=== PATIENT | female | born 1935 | race Caucasian/White ===

== ENCOUNTER 2017-04-09 14:21 | Inpatient (IN) | payer OTHER, BC ==
[~2017-04-09] VITALS: Ht 157.5 cm; Wt 66.1 kg
[~2017-04-09 14:21] MED LIST: CONSTULOSE10 GM/15 M PO; GLUCOVANCE 51 TABLET PO; INDOCIN50 MG PO; MIRALAX17 GM PO; TYLENOL WITH C1 EACH PO; ZANTAC150 MG PO
[2017-04-09 15:25] LABS: HEMATOCRIT 42.2 % (36.0-46.0); MCH 30.2 PG (29.0-34.0); MCHC 33.6 G/DL (30.0-36.0); MCV 89.8 FL (83-99); MEAN PLAT.VOLUME 9.9 uM^3 (9.5-12.4); PLATELET COUNT 170 K/uL (156-360); RBC DIS.WIDTH-CV 12.1 % (11.8-14.6); RBC DIS.WIDTH-SD 40.1 % (39-53); WHITE BLOOD COUNT 5.5 K/uL (4.1-10.2)
[2017-04-09 15:33] LABS: CHLORIDE 104 mEq/L (99-109); POTASSIUM 4.2 mEq/L (3.7-5.4); SODIUM 139 mEq/L (136-147)
[2017-04-09 15:35] LABS: GLUCOSE 133 mg/dL (70-99)
[2017-04-09 15:36] LABS: ANION GAP 11 MEQ/L (2-14)
[2017-04-09 15:39] LABS: GFR ESTIMATE (CALCULATED) > 59 mL/min/
[2017-04-09 15:40] LABS: UREA NITROGEN (BUN) 20 mg/dL (9-23)
[2017-04-09 15:47] LABS: PROTHROMBIN TIME 11.5 SEC (10.2-12.9)
[2017-04-09 15:50] LABS: PTT 28.9 SEC (25-37)
[2017-04-09 15:59] LABS: TROP-I INTERPRETATION NEGATIVE; TROPONIN-I < 0.01 ng/mL (0.0-0.30)
[2017-04-09] MEDS ORDERED: FOLIC ACID1 MG PO (18:05)
[2017-04-09] MEDS ORDERED: TRULICITY0.75 MG/0. SC (18:07)
[2017-04-09] MEDS ORDERED: LINZESS290 MCG PO (18:07)
[2017-04-09] MEDS ORDERED: DOCUSATE SODIU100 M1 PO (18:12)
[2017-04-09] MEDS ORDERED: ATORVASTATIN CA20 MG PO (18:12)
[2017-04-09] MEDS ORDERED: METOPROLOL SUCC50 MG PO (18:12)
[2017-04-09] MEDS ORDERED: CLOPIDOGREL75 MG PO (18:13)
[2017-04-09] MEDS ORDERED: LO-DOSE ASPIRIN81 M2 PO (18:15)
[2017-04-09] MEDS ORDERED: ONE DAILY FOR1 EAC3 PO (18:16)
[2017-04-09] MEDS ORDERED: VITAMIN B-1100 MG PO (18:17)
[2017-04-09 23:48] VITALS: BP 132/81
[2017-04-10 05:52] LABS: HEMATOCRIT 38.5 % (36.0-46.0); MCH 30.1 PG (29.0-34.0); MCHC 33.2 G/DL (30.0-36.0); MCV 90.6 FL (83-99); PLATELET COUNT 160 K/uL (156-360); RBC DIS.WIDTH-CV 12.3 % (11.8-14.6); RBC DIS.WIDTH-SD 40.6 % (39-53); RED BLOOD COUNT 4.25 M/uL (3.80-5.20); WHITE BLOOD COUNT 5.9 K/uL (4.1-10.2)
[2017-04-10 06:10] LABS: ALKALINE PHOSPHATASE 77 IU/L (3-129); ANION GAP 6 MEQ/L (2-14); CHLORIDE 108 MEQ/L (99-109); GFR ESTIMATE (CALCULATED) > 59 mL/min/; GLUCOSE 112 mg/dL (70-99); POTASSIUM 4.4 MEQ/L (3.7-5.4); SAMPLE HEMOLYSIS CHECK 0; SAMPLE ICTERIC CHECK 0; SAMPLE LIPEMIA CHECK 0; SODIUM 141 MEQ/L (136-147); TOTAL BILIRUBIN 0.6 MG/DL (0.0-1.0); UREA NITROGEN (BUN) 15 mg/dL (9-23)
[2017-04-10 06:24] VITALS: BP 113/56
[2017-04-10 08:44] LABS: HEMATOCRIT 40.4 % (36.0-46.0); MCV 90.8 FL (83-99)
[2017-04-10 09:00] VITALS: BP 140/75
[2017-04-10 11:20] VITALS: BP 107/64
[2017-04-10 12:47] LABS: POINT-OF-CARE METER ID UU13113831
[2017-04-10 13:50] LABS: POINT-OF-CARE METER ID UU13113831
[2017-04-10 15:47] LABS: HEMATOCRIT 38.4 % (36.0-46.0); MCV 92.8 FL (83-99)
[2017-04-10 16:10] VITALS: BP 100/56
[2017-04-10 17:39] LABS: POINT-OF-CARE METER ID UU13113831
[2017-04-10 19:20] VITALS: BP 104/60
[2017-04-10 22:43] LABS: POINT-OF-CARE METER ID UU13113831
[2017-04-11 00:39] VITALS: BP 132/69
[2017-04-11 04:42] VITALS: BP 103/57
[2017-04-11 05:41] LABS: MCH 31.1 PG (29.0-34.0); MCHC 33.7 G/DL (30.0-36.0); MCV 92.3 FL (83-99); MEAN PLAT.VOLUME 9.8 uM^3 (9.5-12.4); PLATELET COUNT 132 K/uL (156-360); RBC DIS.WIDTH-CV 12.3 % (11.8-14.6); RBC DIS.WIDTH-SD 41.4 % (39-53); RED BLOOD COUNT 3.79 M/uL (3.80-5.20); WHITE BLOOD COUNT 4.5 K/uL (4.1-10.2)
[2017-04-11 06:01] LABS: ANION GAP 9 MEQ/L (2-14); CHLORIDE 112 MEQ/L (99-109); GFR ESTIMATE (CALCULATED) > 59 mL/min/; GLUCOSE 89 mg/dL (70-99); POTASSIUM 4.1 MEQ/L (3.7-5.4); SAMPLE HEMOLYSIS CHECK 0; SAMPLE ICTERIC CHECK 0; SAMPLE LIPEMIA CHECK 0; SODIUM 144 MEQ/L (136-147); UREA NITROGEN (BUN) 6 mg/dL (9-23)
[2017-04-11 09:00] VITALS: BP 123/66
[2017-04-11 11:41] VITALS: BP 127/68
[2017-04-11 12:45] LABS: POINT-OF-CARE METER ID UU13113831
[2017-04-11 16:00] VITALS: BP 114/63
[2017-04-11 21:21] VITALS: BP 145/100
[2017-04-12] VITALS: BP 136/68
[2017-04-12 00:45] LABS: HEMATOCRIT 36.6 % (36.0-46.0); MCH 30.2 PG (29.0-34.0); MCHC 33.6 G/DL (30.0-36.0); MCV 89.9 FL (83-99); MEAN PLAT.VOLUME 9.6 uM^3 (9.5-12.4); PLATELET COUNT 152 K/uL (156-360); RBC DIS.WIDTH-CV 11.9 % (11.8-14.6); RBC DIS.WIDTH-SD 39.2 % (39-53); RED BLOOD COUNT 4.07 M/uL (3.80-5.20); WHITE BLOOD COUNT 5.3 K/uL (4.1-10.2)
[2017-04-12 04:30] VITALS: BP 120/70
[2017-04-12 06:01] LABS: ANION GAP 6 MEQ/L (2-14); CHLORIDE 110 MEQ/L (99-109); GFR ESTIMATE (CALCULATED) > 59 mL/min/; GLUCOSE 96 mg/dL (70-99); POTASSIUM 3.8 MEQ/L (3.7-5.4); SAMPLE HEMOLYSIS CHECK 0; SAMPLE ICTERIC CHECK 0; SAMPLE LIPEMIA CHECK 0; SODIUM 144 MEQ/L (136-147); UREA NITROGEN (BUN) 3 mg/dL (9-23)
[2017-04-12 09:40] VITALS: BP 134/79
[2017-04-12 12:01] VITALS: BP 133/71
[2017-04-12 12:34] LABS: POINT-OF-CARE METER ID UU13113700
[2017-04-12 16:04] LABS: POINT-OF-CARE METER ID UU13113819
[2017-04-12 17:00] LABS: POINT-OF-CARE METER ID UU13113700
== END 2017-04-12 17:22 | disposition home or self-care (01) | DRG 394 ==
LOC: EME 14:21 → 5WEST 21:25 → EDOF 21:25 → ENRESERV 21:31 → 5WEST 23:23
PROVIDERS: Emergency Medicine; Internal Medicine; Internal Medicine Gastroenterology
PROC: 0DJD8ZZ Inspection of Lower Intestinal Tract, Via Natural or Artificial Opening Endoscopic (ICD-10-PCS; principal; 2017-04-12)
DX: K64.4 Residual hemorrhoidal skin tags (principal); K64.8 Other hemorrhoids; K59.09 Other constipation; K63.5 Polyp of colon; Q43.8 Other specified congenital malformations of intestine; E11.9 Type 2 diabetes mellitus without complications; I25.10 Atherosclerotic heart disease of native coronary artery without angina pectoris; I10 Essential (primary) hypertension; E78.00 Pure hypercholesterolemia, unspecified; K21.9 Gastro-esophageal reflux disease without esophagitis; I25.2 Old myocardial infarction; Z95.0 Presence of cardiac pacemaker; Z95.5 Presence of coronary angioplasty implant and graft; Z79.82 Long term (current) use of aspirin; Z82.49 Family history of ischemic heart disease and other diseases of the circulatory system; Z85.828 Personal history of other malignant neoplasm of skin; Z86.010 Personal history of colon polyps; Z66 Do not resuscitate; Z79.02 Long term (current) use of antithrombotics/antiplatelets
CPT/HCPCS: 74177; 80048; 80053; 80069; 82948; 83880; 84484; 85014; 85018; 85027; 85610; 85730; 86850; 86900; 86901; 99281; 99285; G0378; J1815; J2405; J7030; J7120